=== PATIENT | male | born 1975 | race Caucasian/White ===

== ENCOUNTER 2017-05-29 19:46 | Emergency (ER) | payer OTHER ==
[~2017-05-29] VITALS: Ht 188 cm; Wt 99.8 kg
[2017-05-29 19:46] VITALS: BP 162/100
[2017-05-29] MEDS ORDERED: TDAP [DIPH/PERTUSSIS/TET] 0.5 ML VIAL IM ONE ×2 (20:19→20:30)
--- NOTE | 2017-05-29 20:27 | NUR ---
RADIOLOGY AT BEDSIDE FOR R HAND XRAY.
== END 2017-05-29 22:16 ==
LOC: ER 19:48
DX: S63.681A Other sprain of right thumb, initial encounter (principal); S50.312A Abrasion of left elbow, initial encounter; S62.001A Unspecified fracture of navicular [scaphoid] bone of right wrist, initial encounter for closed fracture; Z88.0 Allergy status to penicillin; W01.0XXA Fall on same level from slipping, tripping and stumbling without subsequent striking against object, initial encounter; Y93.89 Activity, other specified; Y92.89 Other specified places as the place of occurrence of the external cause; Y99.8 Other external cause status
CPT/HCPCS: 29125; 73140; 90471; 90715; 99284; A6403